=== PATIENT | female | born 1980 | race Caucasian/White ===

== ENCOUNTER → 2020-06-28 13:05 | Observation (INO) ==
[2020-06-28 11:45] LABS: Bacteria,Urine Few per hpf (None-Few); Bilirubin,Urine Negative (Negative); Blood,Urine Negative (Negative); Calcium Oxalate Crystals,Urine Present; Clarity,Urine Turbid (Clear); Color,Urine Yellow (Yellow); Glucose,Urine (UA) Normal (Normal); Ketones,Urine Trace mg/dL (Negative); Leukocyte Esterase,Urine Moderate (Negative); Mucus,Urine Few per lpf (None-Few); Nitrite,Urine Negative (Negative); Protein,Urine 70 mg/dL (Neg-Trace); Specific Gravity,Urine > 1.030 (1.010-1.025); Squamous Epithelial Cell,Urine Moderate per hpf (None-Few); Urobilinogen,Urine Normal (Normal)
[~2020-06-28 13:05] MED LIST: Ringers Solution, Lactated 1,000 ML IVC SCH
== END | disposition home or self-care (01) ==
LOC: 1NENULAB
PROVIDERS: ADMIT Obstetrics & Gynecology; ATTEND Obstetrics & Gynecology

== ENCOUNTER 2020-07-26 03:53 | Inpatient (IN) ==
[2020-07-26] MEDS ORDERED: Lidocaine 1% 20 ML MDV INFILT PRN (03:57)
[2020-07-26] MEDS ORDERED: Metoclopramide 10 MG/2 ML VIAL IVP PRN (03:57)
[2020-07-26] MEDS ORDERED: Ondansetron 4 MG/2 ML VIAL IVP PRN (03:57)
[2020-07-26] MEDS ORDERED: *HR* FentaNYL (PF) 100 MCG/2 ML VIAL IVP PRN (03:57)
[2020-07-26] MEDS ORDERED: miSOPROStoL 25 MCG TABLET VG PRN (03:57)
[2020-07-26] MEDS ORDERED: Famotidine 20 MG/2 ML VIAL IVP PRN (03:57)
[2020-07-26] MEDS ORDERED: Naloxone 0.4 MG/ML INJ IVP PRN (03:57)
[2020-07-26 04:31] LABS: Basophils % 0.4 %; Eosinophils # 0.1 K/mcL (0.0-0.6); Eosinophils % 1.2 %; Hematocrit 37.1 % (35.3-44.9); Immature Granulocytes % 0.6 % (0-4); Immature Platelets 24.1 % (1.1-6.1); Lymphocytes # 1.9 K/mcL (0.6-4.6); Lymphocytes % 23.6 %; Mean Corpuscular HGB Conc 32.3 g/dL (31.6-35.5); Mean Corpuscular Hemoglobin 27.8 pg (28.0-33.3); Mean Corpuscular Volume 86.1 fL (83.0-100.0); Mean Platelet Volume 13.8 fL (9.4-12.4); Monocytes # 0.4 K/mcL (0.0-1.3); Monocytes % 4.4 %; Neutrophils # 5.6 K/mcL (1.6-8.9); Platelet Count 134 K/mcL (140-400); Red Blood Count 4.31 M/mcL (3.82-4.97); Red Cell Distribution Width 14.2 % (11.5-14.5); Segmented Neutrophils % 69.8 %
[2020-07-26 04:38] LABS: Amphetamine Screen,Urine Negative ng/mL (Cutoff=1000); Barbiturate Screen,Urine Negative ng/mL (Cutoff=200); Benzodiazepines Screen,Urine Negative ng/mL (Cutoff=200); Cannabinoid Screen,Urine Negative ng/mL (Cutoff = 50); Cocaine Screen,Urine Negative ng/mL (Cutoff= 300); Opiate Screen,Urine Negative ng/mL (Cutoff=300); Phencyclidine Screen,Urine Negative ng/mL (Cutoff=25)
[2020-07-26] MEDS: Ringers Solution, Lactated 1,000 ML IVC SCH ×3 (10:10→13:38)
[2020-07-26] MEDS ORDERED: *HR* FentaNYL (PF) 100 MCG/2 ML VIAL EP ONE (10:14)
[2020-07-26] MEDS ORDERED: Ropivacaine/PF 0.2% 20 ML VIAL EP ONE (10:14)
[2020-07-26] MEDS ORDERED: EPHEDrine 50 MG/ML VIAL IVP PRN (10:14)
[2020-07-26] MEDS ORDERED: Epidural Premix (fent/bupiv) 110 ML EP SCH (10:15)
[2020-07-26] MEDS ORDERED: Ropivacaine/PF 0.2% 20 ML VIAL ONE (10:22)
[2020-07-26] MEDS ORDERED: *HR* FentaNYL (PF) 100 MCG/2 ML VIAL ONE (10:22)
[2020-07-26] MEDS ORDERED: Epidural Premix (fent/bupiv) 110 ML EP ONE (10:23)
[2020-07-26] MEDS ORDERED: Oxytocin 20 units/ LR 1000 mL 20 UNIT/1,000 ML BAG IVC SCH ×2 (13:15→23:50)
[2020-07-26] MEDS ORDERED: Ibuprofen 600 MG TABLET PO PRN (23:50)
[2020-07-26] MEDS ORDERED: Benzocaine/Menthol 56 GM AEROSOL SPRAY TP PRN (23:50)
[2020-07-26] MEDS ORDERED: Lanolin 7 G OINT...G. TP PRN (23:50)
[2020-07-26] MEDS ORDERED: Acetaminophen 325 MG TABLET PO PRN (23:50)
[2020-07-27 05:25] LABS: Basophils % 0.2 %; Hematocrit 35.8 % (35.3-44.9); Red Cell Distribution Width 14.5 % (11.5-14.5)
[2020-07-27 05:26] LABS: Eosinophils % 0.3 %; Hemoglobin 11.6 g/dL (11.5-15.4); Immature Granulocytes % 0.6 % (0-4); Immature Platelets 25.6 % (1.1-6.1); Lymphocytes # 1.5 K/mcL (0.6-4.6); Mean Corpuscular HGB Conc 32.4 g/dL (31.6-35.5); Mean Corpuscular Volume 86.5 fL (83.0-100.0); Mean Platelet Volume 13.6 fL (9.4-12.4); Monocytes # 0.7 K/mcL (0.0-1.3); Monocytes % 5.5 %; Neutrophils # 9.9 K/mcL (1.6-8.9); Platelet Count 110 K/mcL (140-400); Red Blood Count 4.14 M/mcL (3.82-4.97); Segmented Neutrophils % 81.4 %; White Blood Count 12.2 K/mcL (4.3-11.1)
[2020-07-27] MEDS ORDERED: NON-FORMULARY MEDICATION 1 EACH EACH (Pnv Cmb#21/Iron/Folic Acid [Prenatal Complete Caplet PO SCH (09:00)
[2020-07-27] MEDS: Prenatal Vit/FA 1 EACH TABLET PO SCH (09:07)
[2020-07-27] MEDS ORDERED: *HR* HYDROcodone/Acet 5/325 mg TABLET PO PRN (17:18)
[2020-07-28] MEDS: Prenatal Vit/FA 1 EACH TABLET PO SCH (08:20)
[2020-07-28 08:30] VITALS: BP 119/75
== END 2020-07-28 13:15 | disposition home or self-care (01) | DRG 560 ==
LOC: 1NENULAB 03:53 → 1NENUOBS 22:45
PROVIDERS: ADMIT Obstetrics & Gynecology; ATTEND Obstetrics & Gynecology